=== PATIENT | female | born 2000 | race American Indian/Alaskan Native ===

== ENCOUNTER 2020-08-18 17:04 | Emergency (ER) | payer MEDICAID ==
--- NOTE | 2020-08-18 19:38 | Event Note ---
ED Screening Note Date of service: 08/18/20 Time: 19:36 ED Screening Note: 20 y/o female presents to the ER for right knee swelling and pain. Patient reports that she was squatting last week and pain started. This initial assessment/diagnostic orders/clinical plan/treatment(s) is/are subject to change based on patients health status, clinical progression and re- assessment by fellow clinical providers in the ED. Further treatment and workup at subsequent clinical providers discretion. Patient/guardian urged not to elope from the ED as their condition may be serious if not clinically assessed and managed. Initial orders include:
[2020-08-18 19:45] LABS: HCG Qualitative,Urine Negative (Negative)
--- NOTE | 2020-08-18 20:38 | XRay Report ---
XR knee 3V RT INDICATION / CLINICAL INFORMATION: pain/dislocation. COMPARISON: None available. FINDINGS: No acute fracture. Normal alignment. Joint spaces are preserved. Small effusion is present.No destr uctive osseous lesion or suspicious periosteal reaction. Impression: 1. Small effusion without acute fracture. Signer Name: Kwabena Amador MD Signed: 08/18/2020 8:34 PM Workstation Name: [id number]
--- NOTE | 2020-08-18 21:40 | Emergency Department Report ---
ED Lower Extremity HPI - General Chief Complaint: Extremity Injury, Lower Stated Complaint: KNEE DISLOCATION Source: patient Mode of arrival: Ambulatory Limitations: No Limitations - History of Present Illness Initial Comments: 20 y/o female presents to the ER for right knee swelling and pain. Patient reports that she was squatting last week and pain started. Patient denies any other injuries. MD Complaint: knee injury (Left) Onset/Timin -: week(s) Injury: Knee: Left Type of Injury: hyperflexion Place: street/outdoors (At the gym) Severity scale (0 -10): 5 Improves With: immobilization Worsens With: weight bearing Associated Symptoms: snap/pop sensation, swelling, able to partially bear weight - Related Data Previous Rx's Medication Instructions Recorded Last Taken Type Ibuprofen [Motrin 600 MG tab] 600 mg PO Q8H PRN #30 tablet 08/18/20 Unknown Rx Allergies Allergy/AdvReac Type Severity Reaction Status Date / Time Penicillins Allergy Hives Verified 08/18/20 18:17 ED Review of Systems ROS: Stated complaint: KNEE DISLOCATION Other details as noted in HPI Comment: All other systems reviewed and negative ED Past Medical Hx - Past Medical History Hx Hypertension: No Hx CVA: No Hx Heart Attack/AMI: No Hx Congestive Heart Failure: No Hx Diabetes: No Hx Deep Vein Thrombosis: No Hx Pulmonary Embolism: No Hx GERD: No Hx Liver Disease: No Hx Renal Disease: No Hx Sickle Cell Disease: No Hx Arthritis: No Hx Headaches / Migraines: No Hx Seizures: No Hx Kidney Stones: No Hx Psychiatric Treatment: No Hx Asthma: Yes Hx COPD: No Hx Tuberculosis: No Hx Dementia: No Hx HIV: No - Social History Smoking Status: Never Smoker Substance Use Type: None - Medications Home Medications: Home Medications Medication Instructions Recorded Confirmed Last Taken Type Ibuprofen [Motrin 600 MG tab] 600 mg PO Q8H PRN #30 tablet 08/18/20 Unknown Rx ED Physical Exam - General Limitations: No Limitations General appearance: alert, in no apparent distress - Head Head exam: Present: atraumatic, normocephalic - ENT ENT exam: Present: mucous membranes moist - Respiratory Respiratory exam: Absent: accessory muscle use - Back Exam Back exam: Present: normal inspection - Neurological Exam Neurological exam: Present: alert, oriented X3 - Psychiatric Psychiatric exam: Present: normal affect, normal mood - Skin Skin exam: Present: warm, dry, intact, normal color. Absent: rash ED Lower Extremity MDM - Radiology Data Radiology results: report reviewed [facility] [address] [place] [address] XRay Report Signed Patient: GENESIS NEGRO MR#: [id number] : 2000 Acct:[id number] Age/Sex: 20 / F ADM Date: 08/18/20 Loc: ED Attending Dr: Ordering Physician: TALIA WILKINSON MD Date of Service: 08/18/20 Procedure(s): XR knee 3V RT Accession Number(s): [id number] cc: TALIA WILKINSON MD Fluoro Time In Minutes: XR knee 3V RT INDICATION / CLINICAL INFORMATION: pain/dislocation. COMPARISON: None available. FINDINGS: No acute fracture. Normal alignment. Joint spaces are preserved. Small effusion is present.No destructive osseous lesion or suspicious periosteal reaction. Impression: 1. Small effusion without acute fracture. Signer Name: Kwabena Amador MD Signed: 08/18/2020 8:34 PM Workstation Name: [id number] Transcribed By: CS Dictated By: Kwabena Amador MD Electronically Authenticated By: Kwabena Amador MD Signed Date/Time: 08/18/202033 DD/ 32 TD/TT: - Medical Decision Making 20 y/o female presents to the ER for right knee swelling and pain. Patient reports that she was squatting last week and pain started. Negative x-ray for any fracture does have a small effusion. Patient will be given referral to Dr. Ashford placed in a knee immobilizer and ibuprofen for pain management. Critical care attestation.: If time is entered above; I have spent that time in minutes in the direct care of this critically ill patient, excluding procedure time. ED Disposition Clinical Impression: Knee effusion, left Disposition: DC-01 TO HOME OR SELFCARE Is pt being admited?: No Does the pt Need Aspirin: No Condition: Stable Additional Instructions: X-ray shows you have a knee infusion which is fluid on the knee. There is no fractures or dislocations. I like for you to wear the knee immobilizer. Take your ibuprofen and follow-up with an early childhood education specialist. Prescriptions: Ibuprofen [Motrin 600 MG tab] 600 mg PO Q8H PRN #30 tablet PRN Reason: Pain Referrals: PRIMARY CAREMD [Primary Care Provider] - 3-5 Days KG ASHFORD MD [Staff Physician] - 3-5 Days Forms: Work/School Release Form(ED)
[2020-08-18 21:46] VITALS: BP 122/60
== END 2020-08-18 22:05 | disposition home or self-care (01) ==
LOC: ED 17:04
DX: M25.461 Effusion, right knee (principal); J45.909 Unspecified asthma, uncomplicated; Z79.1 Long term (current) use of non-steroidal anti-inflammatories (NSAID); Z88.0 Allergy status to penicillin
CPT/HCPCS: 81025